=== PATIENT | male | born 1990 | race Caucasian/White ===

== ENCOUNTER 2023-06-02 11:15 | Outpatient (RCR) | payer BC, SELFPAY | END 2023-08-06 10:24 | disposition home or self-care (01) | PROVIDERS: PCP Family Medicine; Visit Provider Physician Assistant Surgical | DX: T14.90XA Injury, unspecified, initial encounter (principal); M54.2 Cervicalgia; Z51.89 Encounter for other specified aftercare | CPT/HCPCS: 97110; 97140; 97161 ==

== ENCOUNTER 2023-09-11 13:17 | Outpatient (CLI) | payer BC, SELFPAY | END 2023-09-11 13:18 | disposition home or self-care (01) | PROVIDERS: PCP Family Medicine; Visit Provider Family Medicine | DX: Z00.00 Encounter for general adult medical examination without abnormal findings (principal); K92.1 Melena; K64.9 Unspecified hemorrhoids; Z13.6 Encounter for screening for cardiovascular disorders | CPT/HCPCS: 80048; 80061 ==